=== PATIENT | female | born 1980 | race Caucasian/White ===

== ENCOUNTER 2020-08-07 22:34 | Emergency (ER) | payer SELFPAY ==
[2020-08-07 23:55] LABS: Absolute Lymphocytes (CBC) 1.9 K/uL (0.7-4.9); Basophils % 0.4 % (0-1.3); Hematocrit 37.2 % (36.0-45.0); Lymphocytes % 27.9 % (15.3-44.8); MPV 8.7 fL (7.6-11.3); RBC Red Blood Cell Count 4.74 M/uL (3.86-4.86)
[2020-08-08 00:01] LABS: Protime INR 0.9
[2020-08-08 00:19] LABS: ALT/SGPT 30 U/L (12-78); Albumin 3.3 g/dL (3.4-5.0); Alkaline Phosphatase 56 U/L (45-117); BUN Blood Urea Nitrogen 8 mg/dL (7-18); Bicarbonate 30 mmol/L (21-32); Bilirubin Direct < 0.1 mg/dL (0-0.2); Bilirubin Total 0.1 mg/dL (0.2-1.0); Creatine Phosphokinase 112 U/L (26-192); Glucose Level 91 mg/dL (74-106); NT PRO-BNP 113 pg/mL (<125); Protein, Total 6.6 g/dL (6.4-8.2); Sodium Level 142 mmol/L (136-145); Troponin (Emerg Dept Use Only) < 0.02 ng/mL (0.0-0.045)
[2020-08-08 00:20] LABS: AST/SGOT 20 U/L (15-37); Potassium 3.8 mmol/L (3.5-5.1)
--- NOTE | 2020-08-08 02:12 | ER ---
Nurse's Notes [facility] Name: Loraine Schmitz Age: 39 yrs Sex: Female : 1980 Arrival Date: 08/07/2020 Time: 22:37 Bed 19 Private MD: Diagnosis: Peripheral Edema Presentation: 08/07 22:48 Chief complaint: Patient states: her hands and feet are swollen x 3 days with a prickly bb feeling, pt is at rehab facility for substance abuse x 4 days. Coronavirus screen: At this time, the client does not indicate any symptoms associated with coronavirus-19. Ebola Screen: No symptoms or risks identified at this time. Initial Sepsis Screen: Does the patient meet any 2 criteria? No. Patient's initial sepsis screen is negative. Does the patient have a suspected source of infection? No. Patient's initial sepsis screen is negative. Risk Assessment: Do you want to hurt yourself or someone else? Patient reports no desire to harm self or others. Onset of symptoms was August 04, 2020. 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 - Social history:: Smoking status: Patient reports the use of cigarette tobacco products, smokes one-half pack cigarettes per day, Patient/guardian denies using alcohol, pt in rehab for substance abuse of methamphetamine . Screenin/28 00:07 Abuse screen: Denies threats or abuse. Denies injuries from another. Nutritional ad5 screening: No deficits noted. Tuberculosis screening: No symptoms or risk factors identified. Fall Risk None identified. Assessment: 00:05 Reassessment:. General: Appears in no apparent distress. Behavior is calm, cooperative, ad5 appropriate for age. Pain: Complains of pain in right hand, left hand, right foot and left foot. Neuro: No deficits noted. Level of Consciousness is awake, alert, obeys commands, Oriented to person, place, time, situation, Appropriate for age Moves all extremities. Gait is steady, Speech is normal. Cardiovascular: Heart tones present Capillary refill < 3 seconds Patient's skin is warm and dry. Rhythm is regular. Respiratory: No deficits noted. Airway is patent Trachea midline Respiratory effort is even, unlabored, Respiratory pattern is regular, symmetrical. GI: No deficits noted. Abdomen is flat, Bowel sounds present X 4 quads. : No deficits noted. EENT: No deficits noted. Derm: Skin is intact, Skin is dry, Skin is pink, warm \T\ dry. Musculoskeletal: Circulation, motion, and sensation intact. Capillary refill < 3 seconds, Range of motion: intact in all extremities, Swelling present in right hand, left hand, right foot and left foot. 01:00 Reassessment: Patient appears in no apparent distress at this time. No changes from ad5 previously documented assessment. Patient and/or family updated on plan of care and expected duration. Pain level reassessed. Patient is alert, oriented x 3, equal unlabored respirations, skin warm/dry/pink. 02:15 Reassessment: Patient appears in no apparent distress at this time. No changes from ad5 previously documented assessment. Patient and/or family updated on plan of care and expected duration. Pain level reassessed. Patient is alert, oriented x 3, equal unlabored respirations, skin warm/dry/pink. Vital Signs: 08/07 22:48 BP 135 / 86; Pulse 74; Resp 16 S; Temp 98.6(TE); Pulse Ox 98% on R/A; Weight 68.04 kg bb (R); Height 5 ft. 6 in. (167.64 cm) (R); Pain 9/10; 08/08 00:11 BP 113 / 72; Pulse 70; Resp 16 S; Pulse Ox 100% on R/A; ad5 01:42 BP 136 / 79; Pulse 72; Resp 15 S; Pulse Ox 100% on R/A; ad5 03:05 BP 130 / 77; Pulse 71; Resp 16 S; Pulse Ox 100% on R/A; ad5 08/07 22:48 Body Mass Index 24.21 (68.04 kg, 167.64 cm) bb ED Course: 08/07 22:37 Patient arrived in ED. es 22:50 Triage completed. bb 22:51 Arm band placed on Patient placed in an exam room, on a stretcher, on pulse oximetry. bb 22:57 Antonino Ha MD is Attending Physician. Cesar 23:08 Paolo Mesa is Primary Nurse. ad5 08/08 00:00 Initial lab(s) drawn, by ED staff, sent to lab. ad5 00:07 XRAY Chest (1 view) In Process Unspecified. EDMS 00:08 Patient has correct armband on for positive identification. Bed in low position. Call ad5 light in reach. Side rails up X 1. environmental monitoring specialist on. Pulse ox on. NIBP on. Door closed. Noise minimized. Warm blanket given. Head of bed lowered. 00:12 No provider procedures requiring assistance completed. ad5 03:05 Patient did not have IV access during this emergency room visit. ad5 Administered Medications: No medications were administered Outcome: 02:11 Discharge ordered by . [facility] 03:04 Discharged to home ambulatory. ad5 03:04 Condition: stable 03:04 Discharge instructions given to patient, Instructed on discharge instructions, follow up and referral plans. Demonstrated understanding of instructions, follow-up care. 03:06 Patient left the ED. ad5 Signatures: Dispatcher [employer] EDKaela Haile Brenda, RN RN Antonino Cyr MD MD Paolo Wilson ad5
--- NOTE | 2020-08-08 02:12 | EDPHYS ---
Physician Documentation [facility] Name: Loraine Schmitz Age: 39 yrs Sex: Female : 1980 Arrival Date: 08/07/2020 Time: 22:37 Bed 19 Private MD: ED Physician Antonino Ha HPI: 08/07 23:34 This 39 yrs old Female presents to ER via Ambulatory with complaints of Hand mh7 Swelling, Feet Swelling. 23:34 The patient or guardian reports swelling. The complaints affect the left hand mh7 diffusely, right hand diffusely. Context: The problem was sustained at a rehab facility, resulted from an unknown cause. Onset: The symptoms/episode began/occurred 3 day(s) ago. Modifying factors: The symptoms are alleviated by nothing, the symptoms are aggravated by nothing. Associated signs and symptoms: Pertinent positives: foot swelling, bilaterally, Pertinent negatives: cyanosis distally, decreased sensation distally, fever, nausea, numbness distally, vomiting. Severity of symptoms: At their worst the symptoms were mild, 3 day(s) ago, in the emergency department the symptoms are unchanged. 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 - Social history:: Smoking status: Patient reports the use of cigarette tobacco products, smokes one-half pack cigarettes per day, Patient/guardian denies using alcohol, pt in rehab for substance abuse of methamphetamine . ROS: 23:34 Constitutional: Negative for fever, chills, and weight loss, Eyes: Negative for injury, mh7 pain, redness, and discharge, ENT: Negative for injury, pain, and discharge, Neck: Negative for injury, pain, and swelling, Cardiovascular: Negative for chest pain, palpitations, and edema, Respiratory: Negative for shortness of breath, cough, wheezing, and pleuritic chest pain, Abdomen/GI: Negative for abdominal pain, nausea, vomiting, diarrhea, and constipation, Back: Negative for injury and pain, : Negative for injury, bleeding, discharge, and swelling, Skin: Negative for injury, rash, and discoloration, Neuro: Negative for headache, weakness, numbness, tingling, and seizure, Psych: Negative for depression, anxiety, suicide ideation, homicidal ideation, and hallucinations, Allergy/Immunology: Negative for hives, rash, and allergies, Endocrine: Negative for neck swelling, polydipsia, polyuria, polyphagia, and marked weight changes, Hematologic/Lymphatic: Negative for swollen nodes, abnormal bleeding, and unusual bruising. Exam: 23:34 Constitutional: This is a well developed, well nourished patient who is awake, alert, mh7 and in no acute distress. Head/Face: Normocephalic, atraumatic. Eyes: Pupils equal round and reactive to light, extra-ocular motions intact. Lids and lashes normal. Conjunctiva and sclera are non-icteric and not injected. Cornea within normal limits. Periorbital areas with no swelling, redness, or edema. Neck: Trachea midline, no thyromegaly or masses palpated, and no cervical lymphadenopathy. Supple, full range of motion without nuchal rigidity, or vertebral point tenderness. No Meningismus. Chest/axilla: Normal chest wall appearance and motion. Nontender with no deformity. No lesions are appreciated. Cardiovascular: Regular rate and rhythm with a normal S1 and S2. No gallops, murmurs, or rubs. Normal PMI, no JVD. No pulse deficits. Respiratory: Lungs have equal breath sounds bilaterally, clear to auscultation and percussion. No rales, rhonchi or wheezes noted. No increased work of breathing, no retractions or nasal flaring. Abdomen/GI: Soft, non-tender, with normal bowel sounds. No distension or tympany. No guarding or rebound. No evidence of tenderness throughout. Back: No spinal tenderness. No costovertebral tenderness. Full range of motion. Skin: Warm, dry with normal turgor. Normal color with no rashes, no lesions, and no evidence of cellulitis. 23:34 Neuro: Awake and alert, GCS 15, oriented to person, place, time, and situation. Cranial nerves II-XII grossly intact. Motor strength 5/5 in all extremities. Sensory grossly intact. Cerebellar exam normal. Normal gait. Psych: Awake, alert, with orientation to person, place and time. Behavior, mood, and affect are within normal limits. 23:34 Musculoskeletal/extremity: Extremities: noted in the right hand and left hand: swelling, noted in the right foot and left foot: swelling, ROM: intact in all extremities, Circulation is intact in all extremities. Pulses: are normal with no appreciated deficits, Sensation intact. Compartment Syndrome exam of affected extremity: is normal. no pain, no numbness, no tingling, no sensation deficit, no palor, no weak pulses, Joints: All joints appear normal with full range of motion. Weight bearing: able to fully bear weight, without difficulty, Tendon exam: specific tendon testing normal through active and passive range of motion DVT Exam: no pain, no tenderness, negative Homans' sign noted on exam, no appreciated bluish discoloration, no erythema, no increased warmth, Calves: are non-tender, have equal circumference. Vital Signs: 22:48 BP 135 / 86; Pulse 74; Resp 16 S; Temp 98.6(TE); Pulse Ox 98% on R/A; Weight 68.04 kg bb (R); Height 5 ft. 6 in. (167.64 cm) (R); Pain 9/10; 08/08 00:11 BP 113 / 72; Pulse 70; Resp 16 S; Pulse Ox 100% on R/A; ad5 01:42 BP 136 / 79; Pulse 72; Resp 15 S; Pulse Ox 100% on R/A; ad5 03:05 BP 130 / 77; Pulse 71; Resp 16 S; Pulse Ox 100% on R/A; ad5 08/07 22:48 Body Mass Index 24.21 (68.04 kg, 167.64 cm) MDM: 02:09 Differential diagnosis: tendonitis, pedal edema, cellulitis. Data reviewed: vital mh7 signs, nurses notes, lab test result(s), cardiac enzymes, CBC, electrolytes, EKG, radiologic studies, plain films. Data interpreted: Pulse oximetry: on room air is 100 %. Interpretation: normal. Counseling: I had a detailed discussion with the patient and/or guardian regarding: the historical points, exam findings, and any diagnostic results supporting the discharge/admit diagnosis, the presence of at least one elevated blood pressure reading (>120/80) during this emergency department visit, lab results, radiology results, the need for outpatient follow up, to return to the emergency department if symptoms worsen or persist or if there are any questions or concerns that arise at home. Response to treatment: the patient's symptoms have markedly improved after treatment. 02:11 Patient medically screened. [facility] 08/07 23:19 Order name: Basic Metabolic Panel; Complete Time: 00:21 [facility] 08/07 23:19 Order name: CBC with Diff; Complete Time: 00:19 [facility] 08/07 23:19 Order name: LFT's; Complete Time: 00:21 [facility] 08/07 23:19 Order name: Magnesium; Complete Time: 00:21 [facility] 08/07 23:19 Order name: NT PRO-BNP; Complete Time: 00:21 [facility] 08/07 23:19 Order name: PT-INR; Complete Time: 00:19 [facility] 08/07 23:19 Order name: Troponin (emerg Dept Use Only); Complete Time: 00:21 [facility] 08/07 23:19 Order name: XRAY Chest (1 view) [facility] 08/07 23:19 Order name: EKG; Complete Time: 23:20 [facility] 08/07 23:19 Order name: Cardiac monitoring; Complete Time: 00:01 [facility] 08/07 23:19 Order name: EKG - Nurse/Tech; Complete Time: 00:08 [facility] 08/07 23:20 Order name: CPK; Complete Time: 00:21 [facility] 08/08 00:23 Order name: D-Dimer [facility] 08/08 00:24 Order name: D-Dimer; Complete Time: 01:00 [facility] 08/07 23:19 Order name: Labs collected and sent; Complete Time: 00:01 [facility] 08/07 23:19 Order name: O2 Per Protocol; Complete Time: 00:00 [facility] 08/07 23:19 Order name: O2 Sat Monitoring; Complete Time: 00:01 [facility] Administered Medications: No medications were administered Disposition: 08/08/20 02:11 Discharged to Home. Impression: Peripheral Edema. - Condition is Stable. - Discharge Instructions: Peripheral Edema. - Medication Reconciliation Form, Thank You Letter, Antibiotic Education, Prescription Opioid Use form. - Follow up: Private Physician; When: 1 - 2 days; Reason: Worsening of condition, Recheck today's complaints, Continuance of care, Re-evaluation by your physician. - Problem is new. - Symptoms have improved. Signatures: Dispatcher [employer] Venessa Dove RN RN Antonino Cyr MD MD 7 Paolo Mesa Corrections: (The following items were deleted from the chart) 03:06 02:11 08/08/2020 02:11 Discharged to Home. Impression: Peripheral Edema. Condition is ad5 Stable. Forms are Medication Reconciliation Form, Thank You Letter, Antibiotic Education, Prescription Opioid Use. Follow up: Private Physician; When: 1 - 2 days; Reason: Worsening of condition, Recheck today's complaints, Continuance of care, Re-evaluation by your physician. Problem is new. Symptoms have improved. mh7
[2020-08-08 03:25] VITALS: TEMP 98.6
[2020-08-08 03:27] VITALS: O2SAT 100
[2020-08-08 03:30] VITALS: BP 130/77
--- NOTE | 2020-08-08 08:22 | RAD REPORT ---
EXAM DESCRIPTION: RAD - Chest Single View - 08/08/2020 12:07 am CLINICAL HISTORY: SWELLING Chest pain. COMPARISON: No comparisons FINDINGS: Portable technique limits examination quality. The lungs are grossly clear. The heart is normal in size. No displaced fractures. IMPRESSION: No acute intrathoracic process suspected.
--- NOTE | 2020-08-08 11:55 | EKG ---
Test Date: 2020-08-07 Test Time: 23:33:13 Gut Dropper: MEASUREMENT RESULTS: Intervals: Rate: 74 TX: 108 QRSD: 92 QT: 382 QTc: 424 [place]: P: 60 TX: 108 QRS: 77 T: 41 INTERPRETIVE STATEMENTS: Sinus rhythm with short TX Otherwise normal ECG No previous ECG available for comparison Electronically Signed On 08-08-20 11:54:02 CDT by Jens Gao
== END 2020-08-08 03:06 | disposition home or self-care (01) ==
LOC: ER 22:34
DX: R60.9 Edema, unspecified (principal); F17.210 Nicotine dependence, cigarettes, uncomplicated; Z88.1 Allergy status to other antibiotic agents
CPT/HCPCS: 36415; 71045; 80048; 80076; 82550; 83735; 83880; 84484; 85025; 85379; 85610; 93005; 99284